=== PATIENT | male | born 1990 | race Caucasian/White ===

== ENCOUNTER 2018-07-03 15:15 | Emergency (ER) | payer BC ==
--- NOTE | 2018-07-03 17:42 | ER Document Report ---
ED Medical Screen (RME) - General Chief Complaint: Abdominal Pain Stated Complaint: ABDOMINAL PAIN Time Seen by Provider: 07/03/18 17:36 Mode of Arrival: Ambulatory Information source: Patient TRAVEL OUTSIDE OF THE [place] IN LAST 30 DAYS: No - HPI Patient complains to provider of: MIKEO PAIN Notes: 07/03/18 17:41 Patient here with multiple complaints. The patient states been having some intermittent numbness and to both hands and feet for the last few weeks with increased thirst. Her last few days been having some upper abdominal pain. He denies any chest pain or shortness of breath. No nausea, vomiting, diarrhea. No fever. No known chronic medical problems. Exam Nontoxic, no distress. Mild upper abdominal tenderness to palpation. Lungs clear and equal throughout. Heart rate normal. Plan CBC, CMP, lipase, Accu-Chek, urine, ultrasound of the right upper quadrant. An initial examination was made on the patient as part of the triage process, and it was determined a more comprehensive evaluation was necessary. Initial labs were ordered and patient was transferred to another provider in the ED who assumed care and finished evaluation and plan. - Related Data Allergies/Adverse Reactions: No Known Allergies Allergy (Verified 07/03/18 17:39) Past Medical History - Social History Chew tobacco use (# tins/day): No Frequency of alcohol use: None Drug Abuse: None Renal/ Medical History: Denies: Hx Peritoneal Dialysis Past Surgical History: Reports: Hx Appendectomy Physical Exam - Vital signs Vitals: Temp Pulse Resp BP Pulse Ox 98.2 F 90 18 176/108 H 97 07/03/18 15:23 07/03/18 15:23 07/03/18 15:23 07/03/18 15:23 07/03/18 15:23 Course - Vital Signs Vital signs: Temp Pulse Resp BP Pulse Ox 98.2 F 90 18 176/108 H 97 07/03/18 15:23 07/03/18 15:23 07/03/18 15:23 07/03/18 15:23 07/03/18 15:23
[2018-07-03 18:12] LABS: ABSOLUTE BASOPHILS # (AUTO) 0.1 10^3/uL (0.0-0.2); ABSOLUTE EOSINOPHILS # (AUTO) 0.5 10^3/uL (0.0-0.6); ABSOLUTE LYMPHOCYTES (AUTO) 3.7 10^3/uL (0.5-4.7); ABSOLUTE MONOCYTES (AUTO) 0.8 10^3/uL (0.1-1.4); ABSOLUTE NEUT (AUTO) 4.9 10^3/uL (1.7-8.2); BASOPHILS % (AUTO) 0.5 % (0-2); HEMATOCRIT 46.7 % (37.9-51.0); HEMOGLOBIN 16.2 g/dL (13.5-17.0); LYMPHOCYTES % (AUTO) 36.8 % (13-45); MEAN CORPUSCULAR HEMOGLOBIN 31.5 pg (27.0-33.4); MEAN CORPUSCULAR HGB CONC 34.7 g/dL (32.0-36.0); MEAN CORPUSCULAR VOLUME 91 fl (80-97); MONOCYTES % (AUTO) 8.3 % (3-13); PLATELET COUNT 244 10^3/uL (150-450); RED BLOOD COUNT 5.14 10^6/uL (4.35-5.55); RED CELL DISTRIBUTION WIDTH 13.1 % (11.5-14.0); SEGMENTED NEUTROPHILS % (AUTO) 49.4 % (42-78); TOTAL CELLS COUNTED % (AUTO) 100 %; WHITE BLOOD COUNT 9.9 10^3/uL (4.0-10.5)
[2018-07-03 18:20] LABS: APPEARANCE,URINE CLEAR; BILIRUBIN,URINE NEGATIVE (NEGATIVE); COLOR,URINE YELLOW; GLUCOSE, URINE NEGATIVE (NEGATIVE); KETONES,URINE NEGATIVE (NEGATIVE); LEUKOCYTE ESTERASE,URINE NEGATIVE (NEGATIVE); NITRITE,URINE NEGATIVE (NEGATIVE); PROTEIN,URINE NEGATIVE (NEGATIVE); UROBILINOGEN,URINE NEGATIVE mg/dL (<2.0)
[2018-07-03 18:34] LABS: ALANINE AMINOTRANSFERASE 62 U/L (21-72); ALBUMIN 4.2 g/dL (3.5-5.0); ALKALINE PHOSPHATASE 68 U/L (38-126); ANION GAP 8 (5-19); ASPARTATE AMINO TRANSFERASE 37 U/L (17-59); BILIRUBIN,DIRECT 0.4 mg/dL (0.0-0.4); BILIRUBIN,TOTAL 0.6 mg/dL (0.2-1.3); BLOOD UREA NITROGEN 14 mg/dL (7-20); CALCIUM 9.4 mg/dL (8.4-10.2); CARBON DIOXIDE 25 mmol/L (22-30); CHLORIDE 106 mmol/L (98-107); GLUCOSE 100 mg/dL (75-110); LIPASE 75.2 U/L (23-300); POTASSIUM 4.6 mmol/L (3.6-5.0); TOTAL PROTEIN 7.4 g/dL (6.3-8.2)
--- NOTE | 2018-07-03 18:40 | RADIOLOGY REPORT (SQ) ---
EXAM DESCRIPTION: U/S ABDOMEN LIMITED W/O DOP COMPLETED DATE/TIME: 07/03/2018 6:19 pm REASON FOR STUDY: UPPER ABDO PAIN COMPARISON: None. TECHNIQUE: Dynamic and static grayscale images acquired of the abdomen and recorded on PACS. Additio nal selected color Doppler and spectral images recorded. LIMITATIONS: None. FINDINGS: PANCREAS: No masses. No peripancreatic edema or fluid collections. LIVER: Echotexture is coarse with increased echogenicity consistent with fatty infiltration. LIVER VASCULATURE: Normal directional flow of the main portal vein and hepatic veins. GALLBLADDER: Contracted. No stones. Normal wall thickness. No pericholecystic fluid. ULTRASOUND-DETECTED MAYO'S SIGN: Negative. INTRAHEPATIC DUCTS AND COMMON DUCT: CBD and intrahepatic ducts normal caliber. No filling defects. INFERIOR VENA CAVA: Normal flow. AORTA: No aneurysm. RIGHT KIDNEY: Normal size. Normal echogenicity. No solid or suspicious masses. No hydronephros is. No calcifications. PERITONEAL AND RIGHT PLEURAL SPACE: No ascites or effusions. OTHER: No other significant finding. IMPRESSION: FATTY INFILTRATION OF THE LIVER. No acute gallbladder findings. . TECHNICAL DOCUMENTATION: JOB ID: [id number] [id number] 2010 [employer]- All Rights Reserved Reading location - IP/workstation name: [email or web address]
[2018-07-03] MEDS ORDERED: LIDOCAINE 2% VISCOUS SOLN 20 ML UDCUP PO ONE (19:12)
[2018-07-03] MEDS ORDERED: MAG HYDROX/AL HYDROX/SIMETH SUSP 30 ML UDCUP PO ONE (19:12)
[2018-07-03] MEDS ORDERED: METOCLOPRAMIDE HCL ORAL SOLN 10 MG/10 ML UDCUP PO ONE (19:12)
[2018-07-03] MEDS ORDERED: FAMOTIDINE 20 MG TABLET PO ONE (19:12)
--- NOTE | 2018-07-03 19:12 | ER Document Report ---
ED General - General Chief Complaint: Abdominal Pain Stated Complaint: ABDOMINAL PAIN Time Seen by Provider: 07/03/18 17:36 Mode of Arrival: Ambulatory Notes: Patient is a 27-year old male without chronic medical problems presenting with multiple complaints. The patient states been having some intermittent numbness and to both hands and feet for the last few weeks. Symptoms come and go. No obvious triggering factors, do resolve on their own. Has also had some intermittent blurred vision. Does not have any symptoms currently. Nothing seems to improve or worsen the symptoms. Regards symptoms being mild. Re latively unchanged since onset. 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 He denies bowel or bladder incontinence, urinary retention, focal weakness, loss of sensation, inability to ambulate or syncope. No chest pain or shortness of breath. He has not contacted his primary care physician regarding today's concerns. TRAVEL OUTSIDE OF THE [place] IN LAST 30 DAYS: No - Related Data Allergies/Adverse Reactions: No Known Allergies Allergy (Verified 07/03/18 17:39) Past Medical History - General Information source: Patient - Social History Smoking Status: Current Every Day Smoker Chew tobacco use (# tins/day): No Frequency of alcohol use: None Drug Abuse: None Family History: Reviewed & Not Pertinent Patient has suicidal ideation: No Patient has homicidal ideation: No Renal/ Medical History: Denies: Hx Peritoneal Dialysis Past Surgical History: Reports: Hx Appendectomy Review of Systems - Review of Systems Notes: Constitutional: Negative for fever. HENT: Negative for sore throat. Eyes: Positive for visual changes. Cardiovascular: Negative for chest pain. Respiratory: Negative for shortness of breath. Gastrointestinal: Positive for upper abdominal pain Genitourinary: Negative for dysuria. Musculoskeletal: Positive for mid and low back pain Skin: Negative for rash. Neurological: Negative for headaches, positive for paresthesias to the bilateral hands and feet 10 point ROS negative except as marked above and in HPI. Physical Exam - Vital signs Vitals: Temp Pulse Resp BP Pulse Ox 98.2 F 90 18 176/108 H 97 07/03/18 15:23 07/03/18 15:23 07/03/18 15:23 07/03/18 15:23 07/03/18 15:23 Interpretation: Hypertensive Notes: PHYSICAL EXAMINATION: GENERAL: Well-appearing, well-nourished and in no acute distress. HEAD: Atraumatic, normocephalic. EYES: Pupils equal round and reactive to light, extraocular movements intact, sclera anicteric, conjunctiva are normal. ENT: nares patent, oropharynx clear without exudates. Moist mucous membranes. NECK: Normal range of motion, supple without lymphadenopathy LUNGS: Breath sounds clear to auscultation bilaterally and equal. No wheezes rales or rhonchi. HEART: Regular rate and rhythm without murmurs ABDOMEN: Soft, nontender, normoactive bowel sounds. No guarding, no rebound. No masses appreciated. EXTREMITIES: Normal range of motion, no pitting or edema. No cyanosis. Back: No midline spinal tenderness step-offs or deformities NEUROLOGICAL: Face symmetric. Tongue protrudes midline. Extraocular motions intact. Pupils are 2 mm and equally reactive. Normal speech, normal gait. 5 out of 5 strength in both the distal and proximal upper and lower extremities bilaterally. 2+ patellar reflexes bilaterally sensation is grossly intact throughout. Finger to nose testing normal. Pronator drift normal. PSYCH: Normal mood, normal affect. SKIN: Warm, Dry, normal turgor, no rashes or lesions noted. Course - Re-evaluation Re-evalutation: 07/03/18 19:09 Patient presents with multiple vague complaints that did not appear to be concerning for any acute life-threatening pathology. Vitals are within normal limits at triage and at time of discharge. Physical examination is unremarkable. Patient has tolerated oral intake without difficulty. Patient was not noted to be in distress at any point during their ER visit. At this time, based on the reassuring evaluation, I do not suspect an acute ID, pulmonary embolus, aortic dissection, acute intra-abdominal pathology, stroke, or sepsis.I have emphasized to the patient that he needs to establish a primary care follow-up, we have reviewed an MRI of his head would be indicated as an outpatient if he persists with intermittent paresthesias in his hands, feet and blurred vision. I have advised smoking cessation and weight loss. Have started on famotidine for upper intestinal pain. Right upper quadrant ultrasound, broad panel of laboratories, all unremarkable. Will discharge with return precautions and follow-up recommendations. Verbal discharge instructions given a the bedside and opportunity for questions given. Medication warnings reviewed. Patient is in agreement with this plan and has verbalized understanding of return precautions and the need for primary care follow-up in the next 24-72 hours. - Vital Signs Vital signs: Temp Pulse Resp BP Pulse Ox 98.2 F 90 18 176/108 H 97 07/03/18 15:23 07/03/18 15:23 07/03/18 15:23 07/03/18 15:23 07/03/18 15:23 - Laboratory Result Diagrams: 07/03/18 17:45 07/03/18 17:45 Laboratory results interpreted by me: 07/03/18 17:42 Urine Blood SMALL H - Diagnostic Test Radiology reviewed: Reports reviewed Discharge - Discharge Clinical Impression: Mid back pain, Upper abdominal pain, Paresthesia of both hands, Paresthesia of both feet, Elevated blood pressure reading Condition: Stable Disposition: HOME, SELF-CARE Additional Instructions: Your blood work, urine studies, right upper quadrant ultrasound of your gallbladder are all normal today. Your blood pressure was noted to be elevated and I do encourage you to check your blood pressure as an outpatient to determine whether or not you truly have high blood pressure. I also strongly encourage you to stop smoking. As we discussed if you continue to have tingling in her hands and feet intermittently and blurring of vision you need to have an MRI of her head obtained as an outpatient. He can begin taking famotidine that has been prescribed as needed for upper intestinal irritation that could be causing upper abdominal pain. Your mid and low back pain is likely musculoskeletal in origin and you can use Tylenol 1000 mg every 6 hours as well as stretching and massage to the area to help with this discomfort. As we discussed today, please strongly consider losing weight. Your obesity will result in a shorter life and serious diagnoses including heart attacks, stroke, diabetes, high blood pressure, high cholesterol, kidney failure, and will also result in a much less enjoyable life due to these chronic conditions. Focus on gradual life style changes including removing sugared beverages and processed foods from your diet and at least 30 minutes of moderate activity daily. Try to target 4-5lbs of weight loss per month. Prescriptions: Famotidine 40 mg PO BID #60 tablet
[2018-07-03 19:50] VITALS: BP 179/109
== END 2018-07-03 19:50 | disposition home or self-care (01) ==
LOC: ER 15:15
DX: M54.6 Pain in thoracic spine (principal); R10.10 Upper abdominal pain, unspecified; R20.2 Paresthesia of skin; R03.0 Elevated blood-pressure reading, without diagnosis of hypertension; F17.200 Nicotine dependence, unspecified, uncomplicated
CPT/HCPCS: 99284; 36415; 82962; 83690; 83735; 84443; 85025; 80053; 81001; 76705; J3490

== ENCOUNTER 2019-04-28 22:38 | Emergency (ER) | payer BC ==
[2019-04-29] MEDS ORDERED: ONDANSETRON 4 MG TAB.RAPDIS PO ONE ×2 (00:28→05:38)
[2019-04-29] MEDS ORDERED: ASPIRIN 325 MG TABLET PO ONE (00:28)
--- NOTE | 2019-04-29 00:29 | ER Document Report ---
ED Medical Screen (RME) - General Chief Complaint: Chest Pain Stated Complaint: CHEST PAIN,BLURRED VISION Notes: Patient is a 28-year-old male with no significant past medical history who presents to the emergency department the chief complaint of vomiting and diarrhea for the past few days. He states recently it has been associated with dizziness, chest pain, upper abdominal pain and shortness of breath. He admits to family history of high blood pressure but no other cardiac disease. He denies any known history of high blood pressure for himself. Denies any recent travel or known sick contacts. I have treated and performed a rapid initial assessment of this patient. A comprehensive ED assessment and evaluation of the patient, analysis of test results and completion of medical decision making process will be conducted by additional ED providers. PHYSICAL EXAMINATION: GENERAL: Well-appearing, well-nourished and in no acute distress. A&Ox4. Answers questions appropriately. TRAVEL OUTSIDE OF THE [place] IN LAST 30 DAYS: No - Related Data Allergies/Adverse Reactions: No Known Allergies Allergy (Verified 07/03/18 17:39) Past Medical History Renal/ Medical History: Denies: Hx Peritoneal Dialysis Past Surgical History: Reports: Hx Appendectomy Physical Exam - Vital signs Vitals: Temp Pulse Resp BP Pulse Ox 99.1 F 96 18 153/108 H 95 04/28/19 22:55 04/28/19 22:55 04/28/19 22:55 04/28/19 22:55 04/28/19 22:55 Course - Vital Signs Vital signs: Temp Pulse Resp BP Pulse Ox 99.1 F 96 18 153/108 H 95 04/28/19 22:55 04/28/19 22:55 04/28/19 22:55 04/28/19 22:55 04/28/19 22:55
[2019-04-29 01:00] LABS: ABSOLUTE BASOPHILS # (AUTO) 0.1 10^3/uL (0.0-0.2); ABSOLUTE EOSINOPHILS # (AUTO) 0.1 10^3/uL (0.0-0.6); ABSOLUTE LYMPHOCYTES (AUTO) 1.9 10^3/uL (0.5-4.7); ABSOLUTE MONOCYTES (AUTO) 0.6 10^3/uL (0.1-1.4); ABSOLUTE NEUT (AUTO) 6.9 10^3/uL (1.7-8.2); BASOPHILS % (AUTO) 0.5 % (0-2); EOSINOPHILS % (AUTO) 1.1 % (0-6); HEMATOCRIT 46.4 % (37.9-51.0); HEMOGLOBIN 16.2 g/dL (13.5-17.0); LYMPHOCYTES % (AUTO) 20.3 % (13-45); MEAN CORPUSCULAR HEMOGLOBIN 31.1 pg (27.0-33.4); MEAN CORPUSCULAR HGB CONC 34.8 g/dL (32.0-36.0); MEAN CORPUSCULAR VOLUME 89 fl (80-97); MONOCYTES % (AUTO) 6.1 % (3-13); PLATELET COUNT 226 10^3/uL (150-450); RED CELL DISTRIBUTION WIDTH 13.3 % (11.5-14.0); TOTAL CELLS COUNTED % (AUTO) 100 %; WHITE BLOOD COUNT 9.6 10^3/uL (4.0-10.5)
[2019-04-29 01:24] LABS: A TYPE INFLUENZA AG NEGATIVE (NEGATIVE); B INFLUENZA AG NEGATIVE (NEGATIVE)
[2019-04-29 01:25] LABS: ALBUMIN 3.9 g/dL (3.5-5.0); ALKALINE PHOSPHATASE 67 U/L (38-126); ANION GAP 9 (5-19); ASPARTATE AMINO TRANSFERASE 27 U/L (17-59); BILIRUBIN,TOTAL 0.9 mg/dL (0.2-1.3); BLOOD UREA NITROGEN 12 mg/dL (7-20); CALCIUM 8.7 mg/dL (8.4-10.2); CARBON DIOXIDE 24 mmol/L (22-30); CHLORIDE 102 mmol/L (98-107); GLUCOSE 92 mg/dL (75-110); POTASSIUM 3.6 mmol/L (3.6-5.0); TOTAL PROTEIN 6.5 g/dL (6.3-8.2)
[2019-04-29] MEDS ORDERED: ONDANSETRON 4 MG TAB.RAPDIS ONE (04:59)
[2019-04-29] MEDS ORDERED: ASPIRIN 325 MG TABLET ONE (04:59)
--- NOTE | 2019-04-29 05:09 | RADIOLOGY REPORT (SQ) ---
EXAM DESCRIPTION: XR CHEST 2 VIEWS COMPLETED DATE/TME: 04/29/2019 00:28 CLINICAL HISTORY: cp, sob COMPARISON: None. FINDINGS: Frontal and lateral views of the chest. Cardiomediastinal silhouette: Normal size and contour. Lungs: No consolidation, pneumothorax, or pleural effusion. Bones: No acute osseous abnormality. Low lung volumes. Upper abdomen: No abnormality identified. IMPRESSION: 1. No acute pulmonary process identified.
[2019-04-29] MEDS ORDERED: LOPERAMIDE HCL 2 MG CAPSULE PO ONE (05:38)
--- NOTE | 2019-04-29 06:18 | ER Document Report ---
ED General - General Chief Complaint: Chest Pain Stated Complaint: CHEST PAIN,BLURRED VISION Notes: 28 year old male presents to the ED complaining of diarrhea starting Sunday progressing to nausea, vomiting and diarrhea on Sunday that is non-bloody. States that since Sunday he has not been able to tolerate any oral intake. States that Sunday evening he developed some chest pain and shortness of breath which is only there on standing or walking and it is also associated with dizziness. Neither of the symptoms are very well resting. Patient states the chest pain is bilateral in his low chest and sharp and stabbing in nature. TRAVEL OUTSIDE OF THE [place] IN LAST 30 DAYS: No - Related Data Allergies/Adverse Reactions: No Known Allergies Allergy (Verified 07/03/18 17:39) Past Medical History - General Information source: Patient - Social History Smoking Status: Current Every Day Smoker Chew tobacco use (# tins/day): Yes Frequency of alcohol use: None Drug Abuse: None Family History: Reviewed & Not Pertinent Patient has suicidal ideation: No Patient has homicidal ideation: No Renal/ Medical History: Denies: Hx Peritoneal Dialysis Past Surgical History: Reports: Hx Appendectomy Review of Systems - Review of Systems Constitutional: Chills, Diaphoresis, Weakness. denies: Fever EENT: No symptoms reported Cardiovascular: See HPI Respiratory: See HPI Gastrointestinal: See HPI -: Yes All other systems reviewed and negative Physical Exam - Vital signs Vitals: Temp Pulse Resp BP Pulse Ox 99.1 F 96 18 153/108 H 95 04/28/19 22:55 04/28/19 22:55 04/28/19 22:55 04/28/19 22:55 04/28/19 22:55 Interpretation: Hypertensive - Notes Notes: GENERAL: Alert, interacts well. No acute distress. HEAD: Normocephalic, atraumatic EYES: Pupils equal, round and reactive to light, extraocular movements intact. ENT: Oral mucosa moist, tongue midline. NECK: Full range of motion, supple, trachea midline. LUNGS: Clear to auscultation bilaterally, no wheezes, rales or rhonchi, no respiratory distress. HEART: Regular rate and rhythm, no murmurs, gallops, rubs. ABDOMEN: Soft, nontender, nondistended, bowel sounds present in all 4 quadrants. EXTREMITIES: Moves all 4 extremities spontaneously, no edema, radial and dorsalis pedis pulses 2/4 bilaterally. No cyanosis. NEUROLOGICAL: Alert and oriented x3, normal speech. PSYCH: Normal mood, normal affect. SKIN: Warm, Dry, normal turgor, no rashes or lesions noted. Course - Re-evaluation Re-evalutation: 04/29/19 06:16 CBC unremarkable, CMP grossly unremarkable, troponin negative, flu swab negative, chest x-ray shows no acute process, EKG is nonischemic. No further vomiting since arrival. Patient will be given more Zofran and a p.o. challenge, so long as he tolerates oral without difficulty, patient will be discharged home. - Vital Signs Vital signs: Temp Pulse Resp BP Pulse Ox 97.7 F 90 20 152/109 H 97 04/29/19 03:20 04/29/19 03:20 04/29/19 03:20 04/29/19 03:20 04/29/19 03:20 - Laboratory Result Diagrams: 04/29/19 00:35 04/29/19 00:35 Laboratory results interpreted by me: 04/29/19 00:35 Sodium 135.2 L - EKG Interpretation by Me Additional EKG results interpreted by me: 04/29/19 06:16 EKG shows sinus rhythm at a rate of 95, slight left axis deviation, normal intervals, no ST segment elevations or depressions, no T wave inversions per my interpretation. Discharge - Discharge Clinical Impression: Nausea vomiting and diarrhea, Chest pain with low risk for cardiac etiology Condition: Stable Disposition: HOME, SELF-CARE Additional Instructions: Vomiting Vomiting (or nausea without vomiting) can be caused by many other different problems. In most cases, curing the vomiting depends on fixing the problem that caused it. For temporary relief, we may use an anti-nausea medicine. For home use, we can prescribe suppositories, chewable pills, pills that dissolve in the mouth, or liquid anti-nausea drugs. If the vomiting seems to be caused by a pr oblem in the stomach, acid-suppressing drugs may be prescribed as well. Please take Pepcid 20 mg twice a day for the next week. This will help to decrease overproduction of acid in your stomach. It's important to avoid dehydration. Sip small amounts of clear liquids (soft drinks, tea, broth, etc) . Try to take fluids frequently even if you are vomiting to prevent dehydration. Take increasing amounts of fluid and when liquids are being consumed successfully, advance to small amounts of bland food (toast, soups, mashed potatoes, etc.) until you are able to resume a regular diet. Avoid aspirin, tobacco, and alcohol. If the vomiting worsens, if the problem that's making you vomit worsens, or if there's evidence of bleeding in the stomach (such as black, tarry stool, or bloody or black vomit), you should return immediately. Also, return if abdominal pain worsens or becomes localized to one area or you develop high fever. Call your doctor if you aren't improved in 24 hours. For your diarrhea you may use Imodium as directed [id number]. Prescriptions: Ondansetron [Zofran Odt 4 mg Tablet] 1 - 2 tab PO Q4H PRN #15 tab.rapdis PRN Reason: For Nausea/Vomiting
[2019-04-29 06:55] VITALS: BP 140/96
--- NOTE | 2019-04-29 11:32 | EKG REPORT ---
SEVERITY:- NORMAL ECG - SINUS RHYTHM : Confirmed by: Ursula Watt 29-Apr-2019 11:31:42
== END 2019-04-29 06:55 | disposition home or self-care (01) ==
LOC: ER 22:38
DX: R07.9 Chest pain, unspecified (principal); R11.2 Nausea with vomiting, unspecified; R19.7 Diarrhea, unspecified; H53.8 Other visual disturbances; R06.02 Shortness of breath; F17.290 Nicotine dependence, other tobacco product, uncomplicated
CPT/HCPCS: 93005; 36415; 85025; 80053; 84484; 87804; 71046; 93010; S0119; 99285

== ENCOUNTER 2019-08-21 21:06 | Emergency (ER) | payer BC ==
[2019-08-21 21:18] VITALS: BP 175/115
--- NOTE | 2019-08-21 21:31 | ER Document Report ---
HPI - HPI Patient complains to provider of: Anal pain Time Seen by Provider: 08/21/19 21:26 Quality of pain: No pain Associated Symptoms: None Exacerbated by: Denies Similar symptoms previously: Yes Recently seen / treated by doctor: No Notes: This [age]-year-old male scented to the emergency room today stating he had anal discomfort which is been ongoing since about Sunday there is an inflamed area lateral to his anus and it started bleeding. Past Medical History - General Information source: Patient - Social History Smoking Status: Never Smoker Cigarette use (# per day): No Chew tobacco use (# tins/day): No Smoking Education Provided: No Frequency of alcohol use: None Drug Abuse: None Family History: Reviewed & Not Pertinent Renal/ Medical History: Denies: Hx Peritoneal Dialysis Past Surgical History: Reports: Hx Appendectomy Vertical Provider Document - CONSTITUTIONAL Agree With Documented VS: Yes - INFECTION CONTROL TRAVEL OUTSIDE OF THE [place] IN LAST 30 DAYS: No - HEENT HEENT: Atraumatic, Conjuctival Injection, Normocephalic, PERRLA - NECK Neck: Normal Inspection - RESPIRATORY Respiratory: Breath Sounds Normal - CARDIOVASCULAR Cardiovascular: Regular Rate, Regular Rhythm - GI/ABDOMEN Gastrointestinal: Abdomen Soft, Abdomen Non-Tender, Abdominal Guarding - REPRODUCTIVE Male Genitalia: Normal Inspection Notes: Patient does have a 3 cm hemorrhoid to the left lateral aspect of his anus. - BACK Back: Normal Inspection - MUSCULOSKELETAL/EXTREMETIES Musculoskeletal/Extremeties: MAEW - NEURO Level of Consciousness: Awake, Alert Motor/Sensory: No Motor Deficit, No Sensory Deficit - DERM Integumentary: Warm Course - Vital Signs Vital signs: Temp Pulse Resp BP Pulse Ox 98.3 F 94 20 175/115 H 96 08/21/19 21:12 08/21/19 21:12 08/21/19 21:12 08/21/19 21:12 08/21/19 21:12 Discharge - Discharge Clinical Impression: Hemorrhoid Qualifiers: Hemorrhoid type: first degree Qualified Code(s): K64.0 - First degree hemorrhoids Disposition: HOME, SELF-CARE Instructions: Hemorrhoids ([facility]) Prescriptions: Acetaminophen with Codeine [Tylenol #3 Tablet] 1 each PO Q4HP PRN #30 tablet PRN Reason: Hydrocortisone Acetate [Anusol-Hc] 25 mg RC Q6 #20 supp.rect
== END 2019-08-21 21:33 | disposition home or self-care (01) ==
LOC: ER 21:06
DX: K64.0 First degree hemorrhoids (principal)
CPT/HCPCS: 99283

== ENCOUNTER 2019-10-04 07:00 | Emergency (ER) | payer BC ==
[2019-10-04 08:28] LABS: ABSOLUTE EOSINOPHILS # (AUTO) 0.3 10^3/uL (0.0-0.6); ABSOLUTE LYMPHOCYTES (AUTO) 2.9 10^3/uL (0.5-4.7); ABSOLUTE MONOCYTES (AUTO) 0.6 10^3/uL (0.1-1.4); ABSOLUTE NEUT (AUTO) 6.2 10^3/uL (1.7-8.2); BASOPHILS % (AUTO) 0.5 % (0-2); EOSINOPHILS % (AUTO) 2.8 % (0-6); HEMATOCRIT 42.8 % (37.9-51.0); LYMPHOCYTES % (AUTO) 28.7 % (13-45); MEAN CORPUSCULAR HEMOGLOBIN 31.5 pg (27.0-33.4); MEAN CORPUSCULAR HGB CONC 35.1 g/dL (32.0-36.0); MEAN CORPUSCULAR VOLUME 90 fl (80-97); MONOCYTES % (AUTO) 5.7 % (3-13); PLATELET COUNT 223 10^3/uL (150-450); RED BLOOD COUNT 4.77 10^6/uL (4.35-5.55); RED CELL DISTRIBUTION WIDTH 13.3 % (11.5-14.0); SEGMENTED NEUTROPHILS % (AUTO) 62.3 % (42-78); TOTAL CELLS COUNTED % (AUTO) 100 %
[2019-10-04] MEDS ORDERED: METOCLOPRAMIDE HCL ORAL SOLN 10 MG/10 ML UDCUP PO ONE (08:30)
[2019-10-04] MEDS ORDERED: LIDOCAINE 2% VISCOUS SOLN 15 ML UDCUP PO ONE (08:30)
[2019-10-04] MEDS ORDERED: MAG HYDROX/AL HYDROX/SIMETH SUSP 30 ML UDCUP PO ONE (08:30)
[2019-10-04] MEDS ORDERED: ASPIRIN 81 MG TABLET, CHEWABLE PO ONE (08:31)
[2019-10-04 08:42] LABS: ALBUMIN 4.3 g/dL (3.5-5.0); ALKALINE PHOSPHATASE 76 U/L (38-126); ANION GAP 7 (5-19); ASPARTATE AMINO TRANSFERASE 36 U/L (17-59); BILIRUBIN,TOTAL 0.4 mg/dL (0.2-1.3); BLOOD UREA NITROGEN 17 mg/dL (7-20); CALCIUM 9.4 mg/dL (8.4-10.2); CARBON DIOXIDE 23 mmol/L (22-30); CHLORIDE 109 mmol/L (98-107); CREATINE KINASE 79 U/L (55-170); GLUCOSE 96 mg/dL (75-110); POTASSIUM 4.2 mmol/L (3.6-5.0); TOTAL PROTEIN 7.3 g/dL (6.3-8.2)
[2019-10-04 08:52] LABS: CREATINE KINASE MB 0.89 ng/mL (<4.55)
--- NOTE | 2019-10-04 08:56 | RADIOLOGY REPORT (SQ) ---
EXAM DESCRIPTION: CHEST SINGLE VIEW IMAGES COMPLETED DATE/TIME: 10/04/2019 8:41 am REASON FOR STUDY: chest pain COMPARISON: 04/29/2019 NUMBER OF VIEWS: One view. TECHNIQUE: Single frontal radiographic view of the chest acquired. LIMITATIONS: None. FINDINGS: LUNGS AND PLEURA: Low lung volumes. No opacities, masses or pneumothorax. No pleural eff usion. MEDIASTINUM AND HILAR STRUCTURES: No masses. No contour abnormality. HEART AND VASCULAR STRUCTURES: Normal size. No evidence for failure. BONES: No acute findings. HARDWARE: None in the chest. OTHER: No other significant finding. IMPRESSION: LOW LUNG VOLUMES. NO SIGNIFICANT RADIOGRAPHIC FINDING IN THE CHEST. TECHNICAL DOCUMENTATION: JOB ID: [id number] 2010 [employer]- All Rights Reserved Reading location - IP/workstation name: [email or web address]
[2019-10-04 09:04] LABS: TROPONIN I < 0.012 ng/mL
--- NOTE | 2019-10-04 10:21 | EKG REPORT ---
SEVERITY:- NORMAL ECG - SINUS RHYTHM : Confirmed by: Ursula Watt 04-Oct-2019 10:20:08
[2019-10-04] MEDS ORDERED: DEXAMETHASONE SOD PHOS INJ 10 MG/1 ML VIAL IM ONE (11:10)
[2019-10-04] MEDS ORDERED: KETOROLAC TROMETHAMINE 60 MG/2 ML SDV IM ONE (11:10)
[2019-10-04 13:20] LABS: APPEARANCE,URINE CLEAR; BILIRUBIN,URINE NEGATIVE (NEGATIVE); COLOR,URINE YELLOW; GLUCOSE, URINE NEGATIVE (NEGATIVE); KETONES,URINE NEGATIVE (NEGATIVE); LEUKOCYTE ESTERASE,URINE NEGATIVE (NEGATIVE); NITRITE,URINE NEGATIVE (NEGATIVE); PROTEIN,URINE 30 mg/dL (NEGATIVE); URINE SPECIFIC GRAVITY 1.025; UROBILINOGEN,URINE NEGATIVE mg/dL (<2.0)
[2019-10-04 13:24] LABS: URINE AMPHETAMINES SCREEN NEGATIVE; URINE BARBITURATES SCREEN NEGATIVE; URINE BENZODIAZEPINES SCREEN NEGATIVE; URINE COCAINE SCREEN NEGATIVE; URINE MARIJUANA (THC) SCREEN NEGATIVE; URINE METHADONE SCREEN NEGATIVE; URINE PHENCYCLIDINE SCREEN NEGATIVE
--- NOTE | 2019-10-04 14:19 | ER Document Report ---
Entered by ASHER PRADO SCRIBE 10/04/19 0836 Acting as scribe for:MEHNAZ GALINDO MD ED General - General Chief Complaint: Chest Pain Stated Complaint: CHEST PAIN Information source: Patient Notes: This 29 year old male patient presents to the emergency department today with complaints of chest pain. 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 Patient states it is a stabbing pain in the center of his chest that does not radiate. Patient states there is pain when taking deep breaths and reports some pain in his feet bilaterally. Patient states he has not been pushing/carrying heavy things lately and denies nausea or diaphoresis. TRAVEL OUTSIDE OF THE [place] IN LAST 30 DAYS: No - Related Data Allergies/Adverse Reactions: No Known Allergies Allergy (Verified 08/21/19 21:22) Past Medical History - General Information source: Patient - Social History Smoking Status: Current Every Day Smoker Cigarette use (# per day): Yes Frequency of alcohol use: None Drug Abuse: None Family History: Reviewed & Not Pertinent - Past Medical History Cardiac Medical History: Reports: Hx Hypertension Past Surgical History: Reports: Hx Appendectomy Review of Systems - Review of Systems Constitutional: See HPI. denies: Diaphoresis EENT: No symptoms reported Cardiovascular: See HPI, Chest pain Respiratory: See HPI, Hurts to breathe Gastrointestinal: See HPI. denies: Nausea Genitourinary: No symptoms reported Male Genitourinary: No symptoms reported Musculoskeletal: See HPI Skin: No symptoms reported Hematologic/Lymphatic: No symptoms reported Neurological/Psychological: No symptoms reported -: Yes All other systems reviewed and negative Physical Exam - Vital signs Vitals: Temp Pulse Resp BP Pulse Ox 98.2 F 91 20 169/106 H 98 10/04/19 07:13 10/04/19 07:13 10/04/19 07:13 10/04/19 07:13 10/04/19 07:13 - General General appearance: Appears well, Alert - HEENT Head: Normocephalic, Atraumatic Eyes: Normal Pupils: PERRL - Respiratory Respiratory status: No respiratory distress Breath sounds: Normal Notes: Tenderness with palpation to the midline anterior chest wall. - Cardiovascular Rhythm: Regular Heart sounds: Normal auscultation Murmur: No - Abdominal Inspection: Obese Distension: No distension Bowel sounds: Normal Tenderness: Nontender - Extremities General upper extremity: Normal inspection. No: Edema General lower extremity: Normal inspection, Nontender. No: Edema - Neurological Neuro grossly intact: Yes Cognition: Normal Orientation: AAOx4 - Psychological Associated symptoms: Normal affect, Normal mood - Skin Skin Temperature: Warm Skin Moisture: Dry Skin Color: Normal Course - Re-evaluation Re-evalutation: 10/04/19 14:00 Patient resting comfortably not showing any signs of distress at this time. - Vital Signs Vital signs: Temp Pulse Resp BP Pulse Ox 98.2 F 91 17 167/104 H 99 10/04/19 07:13 10/04/19 07:13 10/04/19 09:01 10/04/19 09:01 10/04/19 09:01 10/04/19 14:00 Vital signs show systolic and diastolic hypertension. Otherwise within normal limits. We will repeat vital signs to determine if patient's blood pressure still elevated. - Laboratory Result Diagrams: 10/04/19 08:08 10/04/19 08:08 Laboratory results interpreted by me: 10/04/19 10/04/19 08:08 12:45 Chloride 109 H ALT 59 H Urine Protein 30 H Urine Blood MODERATE H Laboratory shows moderate blood in urine but on microscopic there is no red cells present. - Diagnostic Test Radiology reviewed: Image reviewed, Reports reviewed Radiology results interpreted by me: 10/04/19 14:02 Chest x-ray shows no acute process. - EKG Interpretation by Me Additional EKG results interpreted by me: 10/04/19 14:02 Normal sinus rhythm rate of 91 no acute changes. Discharge - Discharge Clinical Impression: Acute chest wall pain, Hypertension Condition: Stable Disposition: HOME, SELF-CARE Instructions: Chest Wall Pain ([facility]), High Blood Pressure ([facility]) Prescriptions: Lisinopril/Hydrochlorothiazide [Lisinopril-Hctz 20-25 mg Tab] 1 each PO DAILY 30 Days #30 tablet Ibuprofen [Motrin 800 mg Tablet] 800 mg PO Q8H PRN #21 tablet PRN Reason: pain Forms: Elevated Blood Pressure I personally performed the services described in the documentation, reviewed and edited the documentation which was dictated to the scribe in my presence, and it accurately records my words and actions.
[2019-10-04 14:52] VITALS: BP 153/109
== END 2019-10-04 14:45 | disposition home or self-care (01) ==
LOC: ER 07:00
DX: R07.89 Other chest pain (principal); I10 Essential (primary) hypertension; F17.210 Nicotine dependence, cigarettes, uncomplicated
CPT/HCPCS: 93005; 99284; 96372; 36415; 82553; 82550; 85025; 80053; 81001; 84484; 80307; 71045; 93010; J1885; J3490; J1100

== ENCOUNTER 2019-12-07 14:54 | Emergency (ER) | payer BC ==
[2019-12-07] MEDS ORDERED: ALBUTEROL SULFATE 0.083% NEB 2.5 MG/3 ML AMPUL NEB ONE (15:47)
[2019-12-07] MEDS ORDERED: OXYCODONE-ACETAMINOPHEN 5-325 MG TABLET PO ONE (15:47)
--- NOTE | 2019-12-07 15:54 | ER Document Report ---
ED General - General Chief Complaint: Chest Tightness Stated Complaint: CHEST TIGHTNESS Time Seen by Provider: 12/07/19 15:33 Mode of Arrival: Ambulatory Information source: Patient Notes: Patient is a 29-year-old male coming in today with chief complaint chest pain shortness of breath. He woke up this morning and went out to have his first morning cigarette. While he was smoking he developed sharp sudden chest pain in the left side radiating to the right. Also very short of breath at rest. Denies drug use. Has a history of hypertension, obesity, and 1 pack/day smoking history. Does not report any family history. No history of diabetes. TRAVEL OUTSIDE OF THE [place] IN LAST 30 DAYS: No - Related Data Allergies/Adverse Reactions: No Known Allergies Allergy (Verified 12/07/19 15:52) Past Medical History - General Information source: Patient - Social History Smoking Status: Current Every Day Smoker Family History: Reviewed & Not Pertinent - Past Medical History Cardiac Medical History: Reports: Hx Hypertension Renal/ Medical History: Denies: Hx Peritoneal Dialysis Past Surgical History: Reports: Hx Appendectomy Review of Systems - Review of Systems Notes: Constitutional: No fevers. No chills. EENT: No eye redness. No eye pain. No ear pain. No sore throat. Cardiovascular: +chest pain. No palpitations. Respiratory: No cough. +shortness of breath. No respiratory distress. Gastrointestinal: No abdominal pain. No nausea, vomiting, or diarrhea. Genitourinary: Atraumatic. No lesions. No pain. No discharge. Musculoskeletal: Atraumatic. No swelling. No deformities. Skin: No rash or lesions. Lymphatic: No swollen lymph nodes. Neurologic: No headache. No syncope. Psychiatric: No suicidal or homicidal ideation. Physical Exam - Vital signs Vitals: Pulse Resp BP Pulse Ox 88 20 169/116 H 96 12/07/19 15:08 12/07/19 15:08 12/07/19 15:08 12/07/19 15:08 - Notes Notes: General: Well-developed, well-nourished. In no acute distress. Non-toxic appearing. Cardiac: Well-perfused. Regular rate and rhythm. No murmurs, rubs, or gallops. Pulmonary: Mild dyspnea. No cyanosis. Bilateral lung oliveira are clear to auscultation. Abdominal: Non-distended. Non-rigid. Bowels sounds are present in all four quadrants. No guarding or rebound. HEENT: Head is atraumatic. Conjunctivae not reddened. No tearing. PERRL. EOMI. Orbits atraumatic. No periorbital swelling or erythema. Oropharynx is without erythema, swelling, or exudates. Neck: Supple. No adenopathy. No meningismus. Dermatologic: Warm with good turgor. No rash. Atraumatic. Chest: Atraumatic. No chest wall tenderness to palpation. Musculoskeletal: Moves all extremities well. No range of motion deficits. no muscular or joint tenderness. No paraspinal muscle tenderness. no midline spinal tenderness or step-off. Genitourinary: Examination deferred Neurologic: No gross neurologic deficits. Psychiatric: Normal mood. Course - Re-evaluation Re-evalutation: 12/07/19 15:52 Patient has a heart score of 3. He is dyspneic on exam. His heart rate is normal but his saturations are 94% on room air. He has a smoking history. Denies drugs. Will give some albuterol and also something for pain to see if his symptoms subside. If they do not have low threshold to do a CT PE study to rule out PE. Differential includes pneumothorax, pneumonia, atypical chest pain, pulmonary embolism. 12/07/19 17:37 Patient states that the pain in his chest has somewhat improved but he does continue to have some dyspnea and his oxygen saturation on room air is between 92 and 94%. 12/07/19 19:28 Chest pain is gone. Shortness of breath is improved. O2 sat 96% on room air. Atelectasis seen on CT. Patient is still a rule out for coronavirus and t herefore I advised him to quarantine until such a time as he knows for sure. We will go ahead and treat him like an early pneumonia here. Send him home with Zithromax and a metered-dose albuterol inhaler with spacer. We will give him a [place] [facility] Dr. Ornelas for follow-up - Vital Signs Vital signs: Temp Pulse Resp BP Pulse Ox 88 26 H 146/97 H 88 L 12/07/19 15:08 12/07/19 16:53 12/07/19 16:53 12/07/19 16:53 - Laboratory Result Diagrams: 12/07/19 15:32 12/07/19 15:32 Laboratory results interpreted by me: 12/07/19 15:32 Chloride 108 H ALT 57 H Discharge - Discharge Clinical Impression: Atelectasis Upper respiratory infection Qualifiers: URI type: unspecified URI Qualified Code(s): J06.9 - Acute upper respiratory infection, unspecified Condition: Good Disposition: HOME, SELF-CARE Instructions: Upper Respiratory Illness ([facility]) Additional Instructions: Please avoid going out in public until you are advised of your coronavirus screening test results. Take 2 puffs of the inhaler every 4 hours as needed for shortness of breath/cough. Take Zithromax as directed starting tomorrow Prescriptions: Albuterol Sulfate [Proair HFA Inhalation Aerosol 8.5 gm MDI] 2 puff IH Q4H PRN #1 mdi PRN Reason: Azithromycin [Zithromax 250 mg Tablet] 250 mg PO ASDIR PRN #6 tablet PRN Reason: Forms: Return to Work
[2019-12-07 16:07] LABS: ABSOLUTE EOSINOPHILS # (AUTO) 0.3 10^3/uL (0.0-0.6); ABSOLUTE LYMPHOCYTES (AUTO) 3.2 10^3/uL (0.5-4.7); ABSOLUTE MONOCYTES (AUTO) 0.7 10^3/uL (0.1-1.4); ABSOLUTE NEUT (AUTO) 5.4 10^3/uL (1.7-8.2); BASOPHILS % (AUTO) 0.2 % (0-2); EOSINOPHILS % (AUTO) 3.5 % (0-6); HEMATOCRIT 41.8 % (37.9-51.0); HEMOGLOBIN 14.9 g/dL (13.5-17.0); LYMPHOCYTES % (AUTO) 32.7 % (13-45); MEAN CORPUSCULAR HEMOGLOBIN 31.8 pg (27.0-33.4); MEAN CORPUSCULAR HGB CONC 35.5 g/dL (32.0-36.0); MEAN CORPUSCULAR VOLUME 90 fl (80-97); MONOCYTES % (AUTO) 7.3 % (3-13); PLATELET COUNT 229 10^3/uL (150-450); RED BLOOD COUNT 4.67 10^6/uL (4.35-5.55); RED CELL DISTRIBUTION WIDTH 13.2 % (11.5-14.0); SEGMENTED NEUTROPHILS % (AUTO) 56.3 % (42-78); TOTAL CELLS COUNTED % (AUTO) 100 %; WHITE BLOOD COUNT 9.7 10^3/uL (4.0-10.5)
--- NOTE | 2019-12-07 16:14 | RADIOLOGY REPORT (SQ) ---
EXAM DESCRIPTION: CHEST SINGLE VIEW IMAGES COMPLETED DATE/TIME: 12/07/2019 3:57 pm REASON FOR STUDY: chest pain COMPARISON: 10/04/2019 TECHNIQUE: Single frontal radiographic view of the chest acquired. NUMBER OF VIEWS: One view. LIMITATIONS: None. FINDINGS: LUNGS AND PLEURA: No pneumothorax. Mild subsegmental atelectasis in the left medial lung base. No pleural effusion. MEDIASTINUM AND HILAR STRUCTURES: Stable. HEART AND VASCULAR STRUCTURES: Stable. BONES: No acute findings. HARDWARE: None in the chest. OTHER: No other significant finding. IMPRESSION: Mild subsegmental atelectasis in the left medial lung base. No pleural effusion. TECHNICAL DOCUMENTATION: JOB ID: [id number] 2010 [email or web address]- All Rights Reserved Reading location - IP/workstation name: [email or web address]
[2019-12-07 16:17] LABS: ALBUMIN 3.9 g/dL (3.5-5.0); ALKALINE PHOSPHATASE 85 U/L (38-126); ANION GAP 6 (5-19); ASPARTATE AMINO TRANSFERASE 34 U/L (17-59); BILIRUBIN,DIRECT 0.3 mg/dL (0.0-0.4); BILIRUBIN,TOTAL 0.5 mg/dL (0.2-1.3); BLOOD UREA NITROGEN 15 mg/dL (7-20); CALCIUM 8.8 mg/dL (8.4-10.2); CARBON DIOXIDE 24 mmol/L (22-30); CHLORIDE 108 mmol/L (98-107); CREATINE KINASE 65 U/L (55-170); GLUCOSE 98 mg/dL (75-110); POTASSIUM 3.9 mmol/L (3.6-5.0); TOTAL PROTEIN 6.6 g/dL (6.3-8.2)
[2019-12-07 16:24] LABS: CREATINE KINASE MB 0.59 ng/mL (<4.55); TROPONIN I < 0.012 ng/mL
[2019-12-07 17:16] LABS: URINE AMPHETAMINES SCREEN NEGATIVE; URINE BARBITURATES SCREEN NEGATIVE; URINE BENZODIAZEPINES SCREEN NEGATIVE; URINE COCAINE SCREEN NEGATIVE; URINE METHADONE SCREEN NEGATIVE; URINE PHENCYCLIDINE SCREEN NEGATIVE
[2019-12-07 17:19] LABS: URINE MARIJUANA (THC) SCREEN UNCONFIRMED POSITIVE
--- NOTE | 2019-12-07 19:00 | RADIOLOGY REPORT (SQ) ---
EXAM DESCRIPTION: CTA CHEST IMAGES COMPLETED DATE/TIME: 12/07/2019 6:45 pm REASON FOR STUDY: dyspnea, hypoxia, PE protocol COMPARISON: None. TECHNIQUE: CT scan of the chest performed using helical scanning technique with dynamic intravenous contrast injection. Images reviewed with lung, soft tissue and bone windows. Reconstructed coronal and sagittal MPR images reviewed. Additional 3 dimensional post-processing performed to develop Maximal Intensity Projection images (SD P). All images stored on PACS. All CT scanners at this facility use dose modulation, iterative reconstruction, and/or weight based d osing when appropriate to reduce radiation dose to as low as reasonably achievable (ALARA). [facility]: Dose Right [facility]: CareDose [facility]: Dose Right [facility]: Teradose 4D [facility]: [employer] Global CONTRAST TYPE AND DOSE: contrast/concentration: Isovue 350.00 mmol/ml; Total Contrast Delivered: 75. 0 ml; Total Saline Delivered: 80.0 ml Contrast bolus optimized for the pulmonary arteries. Not diagnostic for the aorta. RENAL FUNCTION: None required. The patient is less than 50 years old. RADIATION DOSE: CT Rad equipment meets quality standard of care and radiation dose reduction techniq ues were employed. CTDIvol: 9.9 - 28.4 mGy. DLP: 986 mGy-cm. . LIMITATIONS: None. FINDINGS: LUNGS AND PLEURA: No pneumothorax. Small areas of subsegmental atelectasis in the periphe ral anterior-lateral left upper lobe. No pleural effusions or pleural calcifications. AORTA AND GREAT VESSELS: No aneurysm. Contrast bolus not optimized for the aorta. HEART: No pericardial effusion. No significant coronary artery calcifications. PULMONARY ARTERIES: No emboli visualized in the main pulmonary arteries or the segmental branches. HILAR AND MEDIASTINAL STRUCTURES: No identified masses or abnormal nodes. HARDWARE: None in the chest. UPPER ABDOMEN: No significant findings. Limited exam. THYROID AND OTHER SOFT TISSUES: No masses. No adenopathy. BONES: No acute or significant finding. 3D MIPS: Confirm above findings. OTHER: No other significant finding. IMPRESSION: No emboli visualized in the main pulmonary arteries or the segmental branches. Small are as of subsegmental atelectasis in the peripheral anterior-lateral left upper lobe. COMMENT: Quality ID # [id number]: Final reports with documentation of one or more dose reduction techniques (e.g., Automated exposure control, adjustment of the mA and/or kV according to patient size, use of iterative reconstruction technique) TECHNICAL DOCUMENTATION: JOB ID: [id number] 2010 [email or web address]- All Rights Reserved Reading location - IP/workstation name: [email or web address]
[2019-12-07] MEDS ORDERED: CEFTRIAXONE 1 GM/D5W RTU 1 GM/50 ML RTUPB IV ONE (19:25)
--- NOTE | 2019-12-07 20:16 | EKG REPORT ---
SEVERITY:- OTHERWISE NORMAL ECG - SINUS RHYTHM BORDERLINE LEFT AXIS DEVIATION : Confirmed by: Ekaterina Kebede MD 07-Dec-2019 20:16:03
[2019-12-07 20:42] VITALS: BP 138/96
== END 2019-12-07 20:42 | disposition home or self-care (01) ==
LOC: ER 14:54
DX: J06.9 Acute upper respiratory infection, unspecified (principal); J98.11 Atelectasis; R07.89 Other chest pain; R06.02 Shortness of breath; F17.210 Nicotine dependence, cigarettes, uncomplicated; I10 Essential (primary) hypertension
CPT/HCPCS: 93005; 94640; 99285; 96365; 36415; 87040; 82553; 82550; 85025; 80053; 84484; 80307; 71045; 71275; 93010; J0696; J7613

== ENCOUNTER 2019-12-24 10:41 | Emergency (ER) | payer SELFPAY ==
[2019-12-24 10:54] VITALS: BP 186/118
[2019-12-24] MEDS ORDERED: HYDROCODONE/ACETAMINOPHEN 5-325 MG TABLET PO ONE (11:16)
--- NOTE | 2019-12-24 11:19 | ER Document Report ---
HPI - HPI Patient complains to provider of: foot and ankle pain Time Seen by Provider: 12/24/19 11:12 Pain Level: 4 Notes: 29-year-old male to the emergency department with complaints of right foot and ankle pain that began this morning. He states he was stepping off his porch and missed 2 steps. He states his ankle rolled underneath him and he felt a pop. He is not able to adequately bear weight on the foot due to pain. He has not taken anything prior to arrival. He denies any other injuries. - ROS Systems Reviewed and Negative: Yes All other systems reviewed and negative - CONSTITUTIONAL Constitutional: DENIES: Fever, Chills - EENT EENT: DENIES: Sore Throat, Ear Pain, Congestion - NEURO Neurology: DENIES: Headache - CARDIOVASCULAR Cardiovascular: DENIES: Chest pain - RESPIRATORY Respiratory: DENIES: Trouble Breathing, Coughing - GASTROINTESTINAL Gastrointestinal: DENIES: Abdominal Pain, Nausea, Patient vomiting, Diarrhea - MUSCULOSKELETAL Musculoskeletal: REPORTS: Extremity pain - See HPI - DERM Skin Color: Normal Skin Problems: None Past Medical History - General Information source: Patient - Social History Smoking Status: Current Every Day Smoker Frequency of alcohol use: Occasional Drug Abuse: None Family History: Reviewed & Not Pertinent - Past Medical History Cardiac Medical History: Reports: Hx Hypertension Renal/ Medical History: Denies: Hx Peritoneal Dialysis Past Surgical History: Reports: Hx Appendectomy Vertical Provider Document - CONSTITUTIONAL Agree With Documented VS: Yes Exam Limitations: No Limitations General Appearance: WD/WN, Mild Distress Notes: Mild pain distress - INFECTION CONTROL TRAVEL OUTSIDE OF THE [place] IN LAST 30 DAYS: No - HEENT HEENT: Atraumatic, Normocephalic, PERRLA - NECK Neck: Normal Inspection, Supple - RESPIRATORY Respiratory: Breath Sounds Normal, No Respiratory Distress. negative: Rales, Rhonchi, Wheezing - CARDIOVASCULAR Cardiovascular: Regular Rate, Regular Rhythm, No Murmur - GI/ABDOMEN Gastrointestinal: Abdomen Soft, Abdomen Non-Tender - MUSCULOSKELETAL/EXTREMETIES Notes: There is tenderness to palpation over the bilateral malleoli of the right ankle. There is also tenderness to palpation on the dorsum of the right foot on the lateral aspect with noted edema. There is evolving ecchymosis. Patient has about 4 out of 5 in strength in dorsiflexion and plantar flexion likely secondary to pain. There is no gross deformity. Cap refill is less than 2 seconds. DP pulses are intact and equal. There is no tenderness to palpation to the right knee, right hip. Right knee has full range of motion with 5 5 strength in flexion extension as well as the right hip - NEURO Level of Consciousness: Awake, Alert, Appropriate - DERM Integumentary: Warm, No Rash Course - Re-evaluation Re-evalutation: 12/24/19 Impression: Ankle sprain and foot sprain. We will Splint the Patient and have him follow up with ortho. Patient agrees with the plan. - Vital Signs Vital signs: Temp Pulse Resp BP Pulse Ox 99.3 F 111 H 20 186/118 H 97 12/24/19 10:53 12/24/19 10:53 12/24/19 10:53 12/24/19 10:53 12/24/19 10:53 - Diagnostic Test Radiology reviewed: Image reviewed, Reports reviewed Procedures - Immobilization Right Ankle Immobilizer type: Ankle stirrup Performed by: PCT Post-Proc Neuro Vasc Exam: Normal, Unchanged from pre-exam Alignment checked and good: Yes Discharge - Discharge Clinical Impression: Fall Qualifiers: Encounter type: initial encounter Qualified Code(s): W19.XXXA - Unspecified fall, initial encounter Right foot sprain Qualifiers: Encounter type: initial encounter Qualified Code(s): S93.601A - Unspecified sprain of right foot, initial encounter Right ankle sprain Qualifiers: Encounter type: initial encounter Involved ligament of ankle: unspecified ligament Qualified Code(s): S93.401A - Sprain of unspecified ligament of right ankle, initial encounter Condition: Stable Disposition: HOME, SELF-CARE Instructions: Sprain ([facility]) Additional Instructions: Take medicines as prescribed. Return if worse. Ice, elevate, use splint. Follow up with orthopedist. Prescriptions: Ibuprofen [Motrin 800 mg Tablet] 800 mg PO Q8H PRN #30 tab PRN Reason: Hydrocodone/Acetaminophen [[place] 5-325 mg Tablet] 1 tab PO Q8H #9 tablet Forms: Return to Work Referrals: LAWANDA SHERIFF JR, DO [ACTIVE PROVISIONAL STAFF] - Follow up in 3-5 days (for ortho follow up)
--- NOTE | 2019-12-24 12:02 | RADIOLOGY REPORT (SQ) ---
EXAM DESCRIPTION: FOOT RIGHT COMPLETE IMAGES COMPLETED DATE/TIME: 12/24/2019 11:51 am REASON FOR STUDY: fall, ankle and foot pain COMPARISON: None. NUMBER OF VIEWS: Three views. TECHNIQUE: AP, lateral and oblique radiographic images acquired of the right foot. LIMITATIONS: None. FINDINGS: MINERALIZATION: Normal. BONES: No acute fracture or dislocation. No worrisome bone lesions. JOINTS: No effusions. SOFT TISSUES: No soft tissue swelling. No foreign body. OTHER: No other significant finding. IMPRESSION: NEGATIVE STUDY OF THE RIGHT FOOT. NO RADIOGRAPHIC EVIDENCE OF ACUTE INJURY. TECHNICAL DOCUMENTATION: JOB ID: [id number] 2010 [employer]- All Rights Reserved Reading location - IP/workstation name: [email or web address]
--- NOTE | 2019-12-24 12:03 | RADIOLOGY REPORT (SQ) ---
EXAM DESCRIPTION: ANKLE RIGHT COMPLETE IMAGES COMPLETED DATE/TIME: 12/24/2019 11:51 am REASON FOR STUDY: fall, ankle and foot pain COMPARISON: None. NUMBER OF VIEWS: Three views. TECHNIQUE: AP, lateral, and oblique radiographic images acquired of the right ankle. LIMITATIONS: None. FINDINGS: MINERALIZATION: Normal. BONES: No acute fracture or dislocation. No worrisome bone lesions. JOINTS: No effusions. SOFT TISSUES: No soft tissue swelling. No foreign body. OTHER: No other significant finding. IMPRESSION: NEGATIVE STUDY OF THE RIGHT ANKLE. NO RADIOGRAPHIC EVIDENCE OF ACUTE INJURY. TECHNICAL DOCUMENTATION: JOB ID: [id number] 2010 [employer]- All Rights Reserved Reading location - IP/workstation name: [email or web address]
== END 2019-12-24 13:22 | disposition home or self-care (01) ==
LOC: ER 10:41
DX: S93.601A Unspecified sprain of right foot, initial encounter (principal); S93.401A Sprain of unspecified ligament of right ankle, initial encounter; X50.0XXA Overexertion from strenuous movement or load, initial encounter; F17.200 Nicotine dependence, unspecified, uncomplicated; I10 Essential (primary) hypertension
CPT/HCPCS: 99284

== ENCOUNTER 2020-02-15 12:42 | Emergency (ER) | payer SELFPAY ==
--- NOTE | 2020-02-15 13:28 | ER Document Report ---
ED Medical Screen (RME) - General Chief Complaint: Chest Pain Stated Complaint: CHEST PAIN Time Seen by Provider: 02/15/20 13:23 Mode of Arrival: Ambulatory Information source: Patient Notes: HPI; 29-year-old male with no previous medical problems presents emergency room complaining of sudden sharp stabbing chest pain that started approximately 1 hour prior to arrival. States he feels like "weight is sitting on my chest". Also complaining of some left upper arm pain. No trauma no injury. States it hurts to breathe. Denies any history of DVTs or PEs. No recent travel. No recent surgeries. No medications for symptoms. PE: Alert and oriented x3. Lungs: Clear to auscultation without rales, rhonchi, wheezes. Heart: Tachycardic without murmurs, rubs, gallops. I have greeted and performed a rapid initial assessment of this patient. A comprehensive ED assessment and evaluation of the patient, analysis of test results and completion of the medical decision making process will be conducted by additional ED providers. I have specifically instructed the patient or family members with the patient to immediately return to any nursing staff should anything change in the patient's condition or with their chief complaint. TRAVEL OUTSIDE OF THE [place] IN LAST 30 DAYS: No - Related Data Allergies/Adverse Reactions: No Known Allergies Allergy (Verified 02/15/20 13:20) Past Medical History - Past Medical History Cardiac Medical History: Reports: Hx Hypertension Renal/ Medical History: Denies: Hx Peritoneal Dialysis Past Surgical History: Reports: Hx Appendectomy Physical Exam - Vital signs Vitals: Temp Pulse Resp BP Pulse Ox 98 F 104 H 28 H 159/97 H 94 02/15/20 12:56 02/15/20 12:56 02/15/20 12:56 02/15/20 12:56 02/15/20 12:56 Course - Vital Signs Vital signs: Temp Pulse Resp BP Pulse Ox 98 F 104 H 28 H 159/97 H 94 02/15/20 12:56 02/15/20 12:56 02/15/20 12:56 02/15/20 12:56 02/15/20 12:56 - Laboratory Result Diagrams: 02/15/20 13:35 02/15/20 13:35 Laboratory results interpreted by me: 02/15/20 13:35 Glucose 155 H Creatine Kinase 40 L
[2020-02-15 14:06] LABS: ABSOLUTE BASOPHILS # (AUTO) 0.1 10^3/uL (0.0-0.2); ABSOLUTE EOSINOPHILS # (AUTO) 0.3 10^3/uL (0.0-0.6); ABSOLUTE LYMPHOCYTES (AUTO) 2.6 10^3/uL (0.5-4.7); ABSOLUTE MONOCYTES (AUTO) 0.6 10^3/uL (0.1-1.4); ABSOLUTE NEUT (AUTO) 5.4 10^3/uL (1.7-8.2); BASOPHILS % (AUTO) 0.7 % (0-2); HEMATOCRIT 48.1 % (37.9-51.0); HEMOGLOBIN 16.2 g/dL (13.5-17.0); LYMPHOCYTES % (AUTO) 29.1 % (13-45); MEAN CORPUSCULAR HEMOGLOBIN 30.5 pg (27.0-33.4); MEAN CORPUSCULAR HGB CONC 33.7 g/dL (32.0-36.0); MEAN CORPUSCULAR VOLUME 91 fl (80-97); MONOCYTES % (AUTO) 6.9 % (3-13); PLATELET COUNT 267 10^3/uL (150-450); RED BLOOD COUNT 5.31 10^6/uL (4.35-5.55); RED CELL DISTRIBUTION WIDTH 13.1 % (11.5-14.0); SEGMENTED NEUTROPHILS % (AUTO) 60.3 % (42-78); TOTAL CELLS COUNTED % (AUTO) 100 %
--- NOTE | 2020-02-15 14:11 | RADIOLOGY REPORT (SQ) ---
EXAM DESCRIPTION: CHEST 2 VIEWS IMAGES COMPLETED DATE/TIME: 02/15/2020 1:52 pm REASON FOR STUDY: chest pain COMPARISON: Chest radiograph 12/07/2019 TECHNIQUE: Frontal and lateral radiographic views of the chest acquired. NUMBER OF VIEWS: Two view. LIMITATIONS: None. FINDINGS: LUNGS AND PLEURA: No opacities, masses or pneumothorax. No pleural effusion. MEDIASTINUM AND HILAR STRUCTURES: No masses or contour abnormalities. HEART AND VASCULAR STRUCTURES: Heart normal size. No evidence for failure. BONES: No acute findings. HARDWARE: None in the chest. OTHER: No other significant finding. IMPRESSION: NO SIGNIFICANT RADIOGRAPHIC FINDING IN THE CHEST. TECHNICAL DOCUMENTATION: JOB ID: [id number] 2010 [email or web address]- All Rights Reserved Reading location - IP/workstation name: [email or web address]
[2020-02-15 14:19] LABS: ALBUMIN 4.1 g/dL (3.5-5.0); ALKALINE PHOSPHATASE 80 U/L (38-126); ANION GAP 7 (5-19); ASPARTATE AMINO TRANSFERASE 34 U/L (17-59); BILIRUBIN,DIRECT 0.1 mg/dL (0.0-0.4); BILIRUBIN,TOTAL 0.3 mg/dL (0.2-1.3); BLOOD UREA NITROGEN 12 mg/dL (7-20); CALCIUM 9.4 mg/dL (8.4-10.2); CARBON DIOXIDE 25 mmol/L (22-30); CHLORIDE 106 mmol/L (98-107); CREATINE KINASE 40 U/L (55-170); GLUCOSE 155 mg/dL (75-110); POTASSIUM 4.4 mmol/L (3.6-5.0)
--- NOTE | 2020-02-15 14:20 | ER Document Report ---
ED Cardiac - General Chief Complaint: Chest Pain Stated Complaint: CHEST PAIN Time Seen by Provider: 02/15/20 13:23 Primary Care Provider: [facility] [Provider Group] - Follow up as needed Mode of Arrival: Ambulatory Information source: Patient TRAVEL OUTSIDE OF THE [place] IN LAST 30 DAYS: No - HPI Positive cardiac history: No Notes: 29-year-old male presents to ED for evaluation of chest pain for the last several hours. Patient reports pain is located in left anterior chest and radiates into the left shoulder and epigastric region. Denies jaw or neck. Notes changes in pain with deep inspiration and ROM. Notes pain is worse with pressure to the chest. Patient denies trauma or injury. Patient states that he has not been doing any heavy lifting. Denies sick contacts or exposures. Denies fevers, chills, nausea, vomiting, low back pain, pain with urination, diarrhea, constipation, or abdominal pain. Denies any cough or productive sputum. Denies any long car trips, calf pain, history of malignancy, or history of DVT/PE. Denies use of illicit substances. Denies other complaints. - Related Data Allergies/Adverse Reactions: No Known Allergies Allergy (Verified 02/15/20 13:20) Past Medical History - Social History Smoking Status: Current Every Day Smoker Family History: Reviewed & Not Pertinent - Past Medical History Cardiac Medical History: Reports: Hx Hypertension Renal/ Medical History: Denies: Hx Peritoneal Dialysis Past Surgical History: Reports: Hx Appendectomy Review of Systems - Review of Systems Notes: REVIEW OF SYSTEMS: CONSTITUTIONAL : Denies fever, chills, or sweats. Denies recent illness. EENT: Denies eye, ear, throat, or mouth pain or symptoms. Denies nasal or sinus congestion. CARDIOVASCULAR: + chest pain. RESPIRATORY: Denies cough, cold, or chest congestion. + shortness of breath, difficulty breathing, denies wheezing. GASTROINTESTINAL: Denies abdominal pain. Denies nausea, vomiting, or diarrhea. Denies constipation. Last BM: GENITOURINARY: Denies difficulty urinating, painful urination, burning, frequency, or blood in urine. FEMALE GENITOURINARY: Denies vaginal bleeding, abnormal or irregular periods. LMP: MUSCULOSKELETAL: Denies neck or back pain or joint pain or swelling. SKIN: Denies rash or skin lesions. HEMATOLOGIC : Denies easy bruising or bleeding. LYMPHATIC: Denies swollen, enlarged glands. NEUROLOGICAL: Denies altered mental status or loss of consciousness. Denies headache. Denies weakness or paralysis or loss of use of either side. Denies problems with gait or speech. Denies sensory or motor loss. PSYCHIATRIC: Denies anxiety or stress or depression. ALL OTHER SYSTEMS REVIEWED AND NEGATIVE. Physical Exam - Vital signs Vitals: Temp Pulse Resp BP Pulse Ox 98 F 104 H 28 H 159/97 H 94 02/15/20 12:56 02/15/20 12:56 02/15/20 12:56 02/15/20 12:56 02/15/20 12:56 General: No acute distress. Alert and oriented x3. Sitting comfortably in a stretcher. Skin: Intact without any jaundice, pallor, or erythema. Warm and dry. HEENT: Normocephalic, atraumatic. Pupils are equal round reactive to light and accommodation. Extraocular movements are intact. TMs without erythema or bulging. Canals are clear. Nares patent without any discharge. Teeth in good condition. Pharynx without erythema, edema, or exudates. No tonsillar enlargement. Uvula is midline. Airway is patent. Neck: Supple with no lymphadenopathy. Full range of motion. Heart: Regular rate and rhythm. S1,S2. No murmurs, rubs, or gallops. Tender to palpation along anterior chest. Lungs: Clear to auscultation bilaterally. No wheezes, rhonchi, rales. Equal chest expansion. No retractions. Abdomen: Soft, nontender to palpation, nondistended. Positive bowel sounds in all 4 quadrants. No hepatosplenomegaly. No masses. No CVA tenderness bilaterally. Neuro: GCS 15. Moving all extremities without discomfort. Extremities: No calf tenderness or edema. No cyanosis or clubbing. Radial and pedal pulses 2+ bilaterally. Brisk capillary refill. Psych: Mood and affect appropriate. Course - Re-evaluation Re-evalutation: 02/15/20 15:24 29-year-old male presents to ED for evaluation of chest pain starting earlier today. Patient denies radiation of pain into the arms, neck or jaw. Patient was evaluated with CBC, CMP, Troponin, D- dimer. EKG found to be unremarkable for ST segment elevations or depressions. CBC and CMP unremarkable for signs of infection or electrolyte abnormalities. Troponin x2 negative and D-dimer unremarkable. Chest x-ray was negative for acute cardiopulmonary pathology i ncluding pneumonia, effusions, or congestion. HEART score is 0. Patient advised of the findings. Patient is most likely experiencing pleurisy verses ACS. Patient treated symptomatically with tordol, ventolin, and prednisone. I did discuss with patient that I was going to [place] swab having given his sudden onset of symptoms. Patient was agreeable with this and is aware he will have results in 3 to 5 days. He will remain on isolation until he has the results. He understands he is under investigation by the department of health until this occurs. He will be written out of work as well. He is also given incentive spirometer to promote deep breathing. He is provided teaching in the emergency department. Instructed to follow up with primary care physician. Patient understands indications to return to the ER. Patient is agreeable with this plan. 02/15/20 19:57 - Vital Signs Vital signs: Temp Pulse Resp BP Pulse Ox 98 F 104 H 25 H 128/84 H 100 02/15/20 12:56 02/15/20 12:56 02/15/20 19:00 02/15/20 19:00 02/15/20 15:05 - Laboratory Result Diagrams: 02/15/20 13:35 02/15/20 13:35 Laboratory results interpreted by me: 02/15/20 13:35 Glucose 155 H Creatine Kinase 40 L - Diagnostic Test Radiology reviewed: Image reviewed Radiology results interpreted by me: 02/15/20 20:00 CXR unremarkable as reviewed by myself. - EKG Interpretation by [place] EKG shows normal: Sinus rhythm Rate: Normal Rhythm: NSR Discharge - Discharge Clinical Impression: Person under investigation for COVID-19 Chest pain Qualifiers: Chest pain type: chest pain on breathing Qualified Code(s): R07.1 - Chest pain on breathing Condition: Stable Disposition: HOME, SELF-CARE Instructions: COVID-19 Guidance for Persons Under Investigation, Chest Wall Pain ([facility]) Prescriptions: Prednisone [Deltasone 20 mg Tablet] 2 tab PO DAILY 5 Days #10 tablet Albuterol Sulfate [Proair HFA Inhalation Aerosol 8.5 gm MDI] 2 puff IH Q4H PRN #1 mdi PRN Reason: Ketorolac Tromethamine [Toradol 10 mg Tablet] 10 mg PO Q8H PRN #15 tablet PRN Reason: Forms: Return to Work Referrals: [facility] [Provider Group] - Follow up as needed
[2020-02-15] MEDS ORDERED: KETOROLAC TROMETHAMINE INJ/PF 30 MG/1 ML SDV IV ONE (14:22)
[2020-02-15 14:30] LABS: CREATINE KINASE MB 0.26 ng/mL (<4.55)
[2020-02-15 14:32] LABS: TROPONIN I < 0.012 ng/mL
[2020-02-15] MEDS ORDERED: ACETAMINOPHEN 325 MG TABLET PO ONE (18:50)
[2020-02-15 19:14] VITALS: BP 128/84
--- NOTE | 2020-02-16 08:08 | EKG REPORT ---
SEVERITY:- OTHERWISE NORMAL ECG - SINUS TACHYCARDIA : Confirmed by: Ursula Watt 16-Feb-2020 08:07:11
== END 2020-02-15 19:20 | disposition home or self-care (01) ==
LOC: ER 12:42
DX: R07.9 Chest pain, unspecified (principal); R07.1 Chest pain on breathing; F17.200 Nicotine dependence, unspecified, uncomplicated; I10 Essential (primary) hypertension; Z20.828 Contact with and (suspected) exposure to other viral communicable diseases
CPT/HCPCS: 93005; 99285; 96374; 36415; 82553; 82550; 85025; 80053; 84484; 85379; 71046; 93010; J1885

== ENCOUNTER 2020-03-31 18:46 | Emergency (ER) | payer SELFPAY ==
--- NOTE | 2020-03-31 19:56 | ER Document Report ---
ED Medical Screen (RME) - General Chief Complaint: Eye Problem Stated Complaint: RIGHT EYE PAIN, VISION PROBLEM Time Seen by Provider: 03/31/20 19:53 Notes: Patient is a 29-year-old male with history of hypertension (NOT CURRENTLY ON MEDICATION) who presents to the emergency department with a chief complaint of loss of vision. Patient reports around 2 PM this afternoon he noticed that he was having discomfort in his eye. He states gradually since then he has lost peripheral vision located on the right. He reports the right eye pain has gotten more severe. He states that there was no trauma to the eye. Patient was prescribed corrective lenses years ago but does not wear them. Patient reports pain with eye movement. TRAVEL OUTSIDE OF THE [place] IN LAST 30 DAYS: No - Related Data Allergies/Adverse Reactions: No Known Allergies Allergy (Verified 02/15/20 13:20) Past Medical History - Social History Chew tobacco use (# tins/day): No Drug Abuse: None - Past Medical History Cardiac Medical History: Reports: Hx Hypertension Renal/ Medical History: Denies: Hx Peritoneal Dialysis Past Surgical History: Reports: Hx Appendectomy Physical Exam - Vital signs Vitals: Temp Pulse Resp BP Pulse Ox 98.5 F 97 16 166/111 H 98 03/31/20 18:49 03/31/20 18:49 03/31/20 18:49 03/31/20 18:49 03/31/20 18:49 - HEENT Head: Normocephalic Eyes: Normal Pupils: PERRL Notes: Patient having difficulty opening the right eye due to right eye pain. I was able to get a quick visual on the right eye. There is no redness, drainage. Patient does have pain with extraocular movements. Course - Re-evaluation Re-evalutation: 03/31/20 19:55 Patient was upgraded to an KINGSLEY level 2. Patient will require a thorough eye exam. Patient was also noted to be hypertensive with a blood pressure of 166/111. Patient denies headache. I have greeted and performed a rapid initial assessment of this patient. A comprehensive ED assessment and evaluation of the patient, analysis of test results and completion of the medical decision making process will be conducted by additional ED providers. - Vital Signs Vital signs: Temp Pulse Resp BP Pulse Ox 98.5 F 97 16 166/111 H 98 03/31/20 18:49 03/31/20 18:49 03/31/20 18:49 03/31/20 18:49 03/31/20 18:49
[2020-03-31] MEDS ORDERED: TETRACAINE HCL 0.5% OPH SOLN 4 ML OD ONE (22:24)
--- NOTE | 2020-03-31 22:44 | ER Document Report ---
ED General - General Chief Complaint: Eye Problem Stated Complaint: RIGHT EYE PAIN, VISION PROBLEM Time Seen by Provider: 03/31/20 19:53 TRAVEL OUTSIDE OF THE [place] IN LAST 30 DAYS: No - HPI Notes: Patient is a 29-year-old male who presents to the emergency department for evaluation. He states he had sudden onset right eye pain. This started around noon today. He has been getting blurred vision since then, and states now he feels like he is losing his peripheral vision. He denies any injury to the area. He said no recent URI symptoms. No fevers or chills. No trauma to the eye. No nausea or vomiting. He states the pain in his eye is worsened by moving it, nothing seems to make it better. - Related Data Allergies/Adverse Reactions: No Known Allergies Allergy (Verified 02/15/20 13:20) Past Medical History - General Information source: Patient - Social History Smoking Status: Never Smoker Chew tobacco use (# tins/day): No Drug Abuse: None Family History: Reviewed & Not Pertinent - Past Medical History Cardiac Medical History: Reports: Hx Hypertension - Never treated Renal/ Medical History: Denies: Hx Peritoneal Dialysis Past Surgical History: Reports: Hx Appendectomy Review of Systems - Review of Systems Constitutional: No symptoms reported EENT: See HPI Cardiovascular: No symptoms reported Respiratory: No symptoms reported Gastrointestinal: No symptoms reported Genitourinary: No symptoms reported - your eyeballs are all out of your your Musculoskeletal: No symptoms reported Skin: No symptoms reported Neurological/Psychological: No symptoms reported Physical Exam - Vital signs Vitals: Temp Pulse Resp BP Pulse Ox 98.5 F 97 16 166/111 H 98 03/31/20 18:49 03/31/20 18:49 03/31/20 18:49 03/31/20 18:49 03/31/20 18:49 - Notes Notes: Is a pleasant 29-year-old male who appears stated age, in no acute distress. Vital signs reviewed, please refer to chart. Head is normocephalic, atraumatic. Pupils equal round, reactive to light. Neck is supple without meningismus. Heart is regular rate and rhythm. Lungs are clear to auscultation bilaterally. Abdomen is soft, nontender, normoactive bowel sounds throughout. Extremities without cyanosis, clubbing. Posterior calves are nontender. Peripheral pulses are equal. Skin is warm and dry. Patient is awake, alert, oriented x3. Cranial nerves III - XII are grossly intact without focal neurological deficits. Strength is plus 5 out of 5 bilateral upper and lower extremities. Sensation is intact. Reflexes symmetrical. Intact [id number] on the left, rapid alternating movements, [id number]. - HEENT Eyes: Normal. No: Pale conjunctiva, Periorbital ecchymosis, Periorbital edema, Scleral icterus, Tears Conjunctiva: Normal Extraocular movements intact: Yes Eyelashes: Normal Pupils: PERRL Visual acuity- Right eye: 20/200 Visual acuity- Left eye: 20/15 Visual acuity- Both eyes: 20/30 Corrective lenses worn: No Course - Re-evaluation Re-evalutation: 04/01/20 00:08 Patient presents the emergency department for evaluation of blurred vision, peripheral vision loss. Initially the patient had absolutely no corneal/conjunctival injection. He did develop some mild conjunctival injection laterally during the course of his stay. This physician had visual acuity for which was showed 20/200 vision in the right. Zackary-Pen showed pressures of 19 and 20. His pupils remain round and reactive. Ultrasound performed at the bedside failed to show any significant signs of retinal detachment. At this point I did consult Dr. Blaze Diaz, on-call for ophthalmology. We talked at length about findings. Patient has no other neurological deficits, untreated hypertension but no other risk factors. His fingerstick glucose is in the 90s. I do not have a clear etiology of his symptoms, but it was discussed with the on-call gearman, and he does not see any need for any acute interventions at this time, just very close follow-up. This was explained to the patient. The importance of calling for thing in the morning to make an appointment to be seen immediately was stressed to the patient, and he voiced understanding. - Vital Signs Vital signs: Temp Pulse Resp BP Pulse Ox 98.5 F 97 16 166/111 H 98 03/31/20 18:49 03/31/20 18:49 03/31/20 18:49 03/31/20 18:49 03/31/20 18:49 - Laboratory Results Critical Laboratory Results Reviewed: No Critical Results - Radiology Results Critical Radiology Results Reviewed: No Critical Results Discharge - Discharge Clinical Impression: Acute right eye pain, Vision loss, right eye Condition: Stable Disposition: HOME, SELF-CARE Additional Instructions: No clear cause was identified today for the visual symptoms and eye pain you are experiencing. It is very important that you follow-up closely with eye doctor tomorrow. Call his office in the morning to make an appointment to be seen. Return to the emergency department if you develop worsening or new concerning symptoms of any sort. Referrals: BLAZE DIAZ, DO [ACTIVE STAFF] - Follow up as needed
[2020-04-01 01:18] VITALS: BP 162/113
== END 2020-04-01 01:18 | disposition home or self-care (01) ==
LOC: ER 18:46
DX: H57.11 Ocular pain, right eye (principal); H54.61 Unqualified visual loss, right eye, normal vision left eye; H53.8 Other visual disturbances; I10 Essential (primary) hypertension
CPT/HCPCS: 99282; 82962; J3490

== ENCOUNTER 2020-04-01 12:42 | Emergency (ER) | payer SELFPAY ==
--- NOTE | 2020-04-01 13:32 | ER Document Report ---
ED Medical Screen (RME) - General TRAVEL OUTSIDE OF THE [place] IN LAST 30 DAYS: No <FINESSE JAIMES - Last Filed: 04/01/20 13:36> <DIDIERBRUCE P - Last Filed: 04/01/20 16:16> - General Chief Complaint: High Blood Pressure Stated Complaint: HIGH BLOOD PRESSURE - HPI Notes: 04/01/20 13:30 Rapid Medical Exam HPI: Patient is a 29-year-old male who presents with right lateral peripheral vision loss and eye pain since last night. He was seen in the ED last night and was discharged home to follow-up with ophthalmology. Ophthalmology saw him today in the eye dilation and overall reassuring exam but sent him back to the ER just now because of elevated blood pressures. Patient has no other neurologic deficits. No history of hypertension. His blood pressures are noted for diastolic greater than 100. Patient says the ER did check his eye pressures last night and they were fine. He said he also had a ultrasound of the eye last night which was reassuring. Pt says eye doctor this morning did say his vision was normal in his left eye, to all [place]ira Physical Exam: GENERAL: Well-appearing, well-nourished and in no acute distress. HEAD: Atraumatic, normocephalic. ENT: eyes, right- loss of periph vision to right eye. Moist mucous membranes. RESP: Respirations even and unlabored CV- Regular rate. NEURO: No focal neurological deficits. Moves all extremities spontaneously and on command. My involvement in this patients care was limited to a rapid initial assessment. A comprehensive ED assessment and evaluation of the patient, analysis of test results, treatment, and completion of the medical decision making process will be performed by other ER providers. 04/01/20 13:36 (FINESSE JAIMES) - Related Data Allergies/Adverse Reactions: No Known Allergies Allergy (Verified 04/01/20 13:27) Past Medical History - Past Medical History Cardiac Medical History: Reports: Hx Hypertension - Never treated Renal/ Medical History: Denies: Hx Peritoneal Dialysis Past Surgical History: Reports: Hx Appendectomy <FINESSE JAIMES - Last Filed: 04/01/20 13:36> Physical Exam - Vital signs Vitals: Temp Pulse Resp BP Pulse Ox 98.8 F 90 17 172/101 H 98 04/01/20 12:55 04/01/20 12:55 04/01/20 12:55 04/01/20 12:55 04/01/20 12:55 Course - Laboratory Results Critical Laboratory Results Reviewed: No Critical Results <FINESSE JAIMES - Last Filed: 04/01/20 13:36> - Laboratory Results Result Diagrams: 04/01/20 14:20 04/01/20 14:20 <BRUCE VELÁSQUEZ - Last Filed: 04/01/20 16:16> - Re-evaluation Re-evalutation: 04/01/20 16:13 MDM 29 year old with htn. Looking thru old records he has htn and DBP always seemingly >110. Discussed follow up and he expressed understanding. Opthamology has already visited with the pt and there is no acute opthamology issue. We discussed lifestyle modification and pt also expressed understanding regarding this. (BRUCE VELÁSQUEZ) - Vital Signs Vital signs: Temp Pulse Resp BP Pulse Ox 98.8 F 90 17 168/111 H 98 04/01/20 12:55 04/01/20 12:55 04/01/20 12:55 04/01/20 15:47 04/01/20 12:55 - Laboratory Results Laboratory Results Interpreted: 04/01/20 14:20 ALT 63 H Doctor's Discharge <FINESSE JAIMES - Last Filed: 04/01/20 13:36> <BRUCE VELÁSQUEZ - Last Filed: 04/01/20 16:16> - Discharge Clinical Impression: Tobacco abuse Hypertension Qualifiers: Hypertension type: unspecified Qualified Code(s): I10 - Essential (primary) hypertension Condition: Stable Instructions: Angiotensin Converting Enzyme Inhibitor Medication ([facility]), High Blood Pressure ([facility]), High Blood Pressure, Requiring Treatment ([facility]), Hydrochlorothiazide ([facility]), Family Physicians / Practices Additional Instructions: Stop smoking. Exercise in moderation. Take the medicine as directed. Please return here for chest pain or shortness of breath or other problems or concerns. Call a primary doctor for follow up in the next 2-3 weeks. Prescriptions: Hydrochlorothiazide 12.5 mg PO DAILY #30 tablet Lisinopril [Prinivil] 5 mg PO DAILY #30 tablet Forms: Elevated Blood Pressure, Smoking Cessation Education
--- NOTE | 2020-04-01 13:51 | RADIOLOGY REPORT (SQ) ---
EXAM DESCRIPTION: CHEST SINGLE VIEW IMAGES COMPLETED DATE/TIME: 04/01/2020 1:43 pm REASON FOR STUDY: htn emergnecy, vision loss COMPARISON: 02/17/2020 EXAM PARAMETERS: NUMBER OF VIEWS: One view. TECHNIQUE: Single frontal radiographic view of the chest acquired. RADIATION DOSE: NA LIMITATIONS: None. FINDINGS: LUNGS AND PLEURA: No opacities, masses or pneumothorax. No pleural effusion. MEDIASTINUM AND HILAR STRUCTURES: No masses. Contour normal. HEART AND VASCULAR STRUCTURES: Heart normal in size. Normal vasculature. BONES: No acute findings. HARDWARE: None in the chest. OTHER: No other significant finding. IMPRESSION: NO ACUTE RADIOGRAPHIC FINDING IN THE CHEST. TECHNICAL DOCUMENTATION: JOB ID: [id number] 2010 [employer]- All Rights Reserved Reading location - IP/workstation name: [email or web address]
--- NOTE | 2020-04-01 13:54 | RADIOLOGY REPORT (SQ) ---
EXAM DESCRIPTION: CT HEAD WITHOUT IMAGES COMPLETED DATE/TIME: 04/01/2020 1:43 pm REASON FOR STUDY: HTN, vision loss COMPARISON: None. TECHNIQUE: Axial images acquired through the brain without intravenous contrast. Images reviewed wi th bone, brain and subdural windows. Additional sagittal and coronal reconstructions were generated. Images stored on PACS. All CT scanners at this facility use dose modulation, iterative reconstruction, and/or weight based d osing when appropriate to reduce radiation dose to as low as reasonably achievable (ALARA). [facility]: Dose Right [facility]: CareDose [facility]: Dose Right [facility]: Teradose 4D [facility]: Smart KeyEffx RADIATION DOSE: CT Rad equipment meets quality standard of care and radiation dose reduction techniq ues were employed. CTDIvol: 53.2 mGy. DLP: 1070 mGy-cm. mGy. LIMITATIONS: None. FINDINGS: VENTRICLES: Normal size and contour. CEREBRUM: No masses. No hemorrhage. No midline shift. No evidence for acute infarction. Normal gra y/white matter differentiation. No areas of low density in the white matter. CEREBELLUM: No masses. No hemorrhage. No alteration of density. No evidence for acute infarction. EXTRAAXIAL SPACES: No fluid collections. No masses. ORBITS AND GLOBE: No intra- or extraconal masses. Normal contour of globe without masses. CALVARIUM: No fracture. PARANASAL SINUSES: Incidental note is made of a diminutive, mildly hyperostotic right maxillary sinus , suggesting chronic sinus disease. No mucosal thickening or fluid levels to suggest acute paranasal sinusitis. Mastoids are clear and evenly aerated. SOFT TISSUES: No mass or hematoma. OTHER: No other significant finding. IMPRESSION: NORMAL BRAIN CT WITHOUT CONTRAST. CHRONIC AND INCIDENTAL FINDINGS DETAILED ABOVE. EVIDENCE OF ACUTE STROKE: NO. COMMENT: Quality ID # [id number]: Final reports with documentation of one or more dose reduction techniques (e.g., Automated exposure control, adjustment of the mA and/or kV according to patient size, use of iterative reconstruction technique) TECHNICAL DOCUMENTATION: JOB ID: [id number] 2010 [employer]- All Rights Reserved Reading location - IP/workstation name: [email or web address]
[2020-04-01 14:51] LABS: ABSOLUTE BASOPHILS # (AUTO) 0.1 10^3/uL (0.0-0.2); ABSOLUTE EOSINOPHILS # (AUTO) 0.3 10^3/uL (0.0-0.6); ABSOLUTE LYMPHOCYTES (AUTO) 3.1 10^3/uL (0.5-4.7); ABSOLUTE MONOCYTES (AUTO) 0.5 10^3/uL (0.1-1.4); ABSOLUTE NEUT (AUTO) 4.6 10^3/uL (1.7-8.2); BASOPHILS % (AUTO) 0.7 % (0-2); EOSINOPHILS % (AUTO) 3.1 % (0-6); HEMATOCRIT 45.9 % (37.9-51.0); HEMOGLOBIN 15.9 g/dL (13.5-17.0); MEAN CORPUSCULAR HEMOGLOBIN 30.2 pg (27.0-33.4); MEAN CORPUSCULAR HGB CONC 34.6 g/dL (32.0-36.0); MEAN CORPUSCULAR VOLUME 87 fl (80-97); MONOCYTES % (AUTO) 5.9 % (3-13); PLATELET COUNT 216 10^3/uL (150-450); RED BLOOD COUNT 5.26 10^6/uL (4.35-5.55); RED CELL DISTRIBUTION WIDTH 12.7 % (11.5-14.0); SEGMENTED NEUTROPHILS % (AUTO) 54.3 % (42-78); TOTAL CELLS COUNTED % (AUTO) 100 %; WHITE BLOOD COUNT 8.6 10^3/uL (4.0-10.5)
[2020-04-01 15:08] LABS: ALBUMIN 4.1 g/dL (3.5-5.0); ALKALINE PHOSPHATASE 93 U/L (38-126); ANION GAP 5 (5-19); ASPARTATE AMINO TRANSFERASE 38 U/L (17-59); BILIRUBIN,DIRECT 0.2 mg/dL (0.0-0.4); BILIRUBIN,TOTAL 0.5 mg/dL (0.2-1.3); BLOOD UREA NITROGEN 10 mg/dL (7-20); CALCIUM 9.4 mg/dL (8.4-10.2); CARBON DIOXIDE 27 mmol/L (22-30); CHLORIDE 106 mmol/L (98-107); GLUCOSE 90 mg/dL (75-110); POTASSIUM 4.6 mmol/L (3.6-5.0)
[2020-04-01] MEDS ORDERED: LISINOPRIL 5 MG TABLET PO ONE (16:09)
[2020-04-01] MEDS ORDERED: HYDROCHLOROTHIAZIDE 12.5 MG TABLET PO ONE (16:09)
[2020-04-01 16:12] VITALS: BP 157/109
--- NOTE | 2020-04-01 16:50 | ER Document Report ---
Entered by ASHER PRADO SCRIBE 04/01/20 1545 Acting as scribe for:BRUCE VELÁSQUEZ DO ED General - General Chief Complaint: High Blood Pressure Stated Complaint: HIGH BLOOD PRESSURE Time Seen by Provider: 04/01/20 15:13 Information source: Patient Notes: This 29 year old male patient presents to the emergency department today with an elevated blood pressure. 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 Patient states no acute problems were found and was sent by his Jig Inspector to the ED today for his elevated blood pressure. Patient does not report any symptoms. Patient reports family history of HTN and is not on any medications for blood pressure. TRAVEL OUTSIDE OF THE [place] IN LAST 30 DAYS: No - Related Data Allergies/Adverse Reactions: No Known Allergies Allergy (Verified 04/01/20 13:27) Past Medical History - General Information source: Patient, [facility] Records - Social History Smoking Status: Current Every Day Smoker Cigarette use (# per day): Yes Family History: Hypertension Patient has homicidal ideation: No - Past Medical History Cardiac Medical History: Reports: Hx Hypertension - Never treated Renal/ Medical History: Denies: Hx Peritoneal Dialysis Past Surgical History: Reports: Hx Appendectomy Review of Systems - Review of Systems Constitutional: No symptoms reported EENT: See HPI Cardiovascular: See HPI, Other - Elevated blood pressure Respiratory: No symptoms reported Gastrointestinal: No symptoms reported Genitourinary: No symptoms reported Male Genitourinary: No symptoms reported Musculoskeletal: No symptoms reported Skin: No symptoms reported Hematologic/Lymphatic: No symptoms reported Neurological/Psychological: No symptoms reported -: Yes All other systems reviewed and negative Physical Exam - Vital signs Vitals: Temp Pulse Resp BP Pulse Ox 98.8 F 90 17 172/101 H 98 04/01/20 12:55 04/01/20 12:55 04/01/20 12:55 04/01/20 12:55 04/01/20 12:55 - General General appearance: Appears well, Alert - HEENT Head: Normocephalic, Atraumatic Eyes: Normal Pupils: PERRL Visual acuity- Right eye: 20/50 Visual acuity- Left eye: 20/30 Visual acuity- Both eyes: 20/20 Corrective lenses worn: No - Respiratory Respiratory status: No respiratory distress Chest status: Nontender Breath sounds: Normal Chest palpation: Normal - Cardiovascular Rhythm: Regular Heart sounds: Normal auscultation Murmur: No - Abdominal Inspection: Obese Distension: No distension Bowel sounds: Normal Tenderness: Nontender - Extremities General upper extremity: Normal inspection, Normal ROM General lower extremity: Normal inspection, Normal ROM. No: Edema - Neurological Neuro grossly intact: Yes Cognition: Normal Orientation: AAOx4 [place] Coma Scale Eye Opening: Spontaneous [place] Coma Scale Verbal: Oriented Sig[place]o Coma Scale Motor: Obeys Commands Sigifredo Coma Scale Total: 15 Speech: Normal Sensory: Normal - Psychological Associated symptoms: Normal affect, Normal mood - Skin Skin Temperature: Warm Skin Moisture: Dry Skin Color: Normal Course - Vital Signs Vital signs: Temp Pulse Resp BP Pulse Ox 98.5 F 87 18 157/109 H 98 04/01/20 16:00 04/01/20 16:00 04/01/20 16:00 04/01/20 16:01 04/01/20 16:00 - Laboratory Results Result Diagrams: 04/01/20 14:20 04/01/20 14:20 Laboratory Results Interpreted: 04/01/20 14:20 ALT 63 H Critical Laboratory Results Reviewed: No Critical Results - Radiology Results Critical Radiology Results Reviewed: No Critical Results Discharge - Discharge Clinical Impression: Tobacco abuse Hypertension Qualifiers: Hypertension type: unspecified Qualified Code(s): I10 - Essential (primary) hypertension Condition: Stable Disposition: HOME, SELF-CARE Instructions: Angiotensin Converting Enzyme Inhibitor Medication ([facility]), Family Physicians / Practices, High Blood Pressure ([facility]), High Blood Pressure, Requiring Treatment ([facility]), Hydrochlorothiazide ([facility]) Additional Instructions: Stop smoking. Exercise in moderation. Take the medicine as directed. Please return here for chest pain or shortness of breath or other problems or concerns. Call a primary doctor for follow up in the next 2-3 weeks. Prescriptions: Hydrochlorothiazide 12.5 mg PO DAILY #30 tablet Lisinopril [Prinivil] 5 mg PO DAILY #30 tablet Forms: Elevated Blood Pressure, Smoking Cessation Education I personally performed the services described in the documentation, reviewed and edited the documentation which was dictated to the scribe in my presence, and it accurately records my words and actions.
--- NOTE | 2020-04-01 19:56 | EKG REPORT ---
SEVERITY:- BORDERLINE ECG - SINUS RHYTHM NONSPECIFIC INTRAVENTRICULAR CONDUCTION DELAY : Confirmed by: Aditya Membreno MD 01-Apr-2020 19:55:28
== END 2020-04-01 16:31 | disposition home or self-care (01) ==
LOC: ER 12:42
DX: I10 Essential (primary) hypertension (principal); H57.11 Ocular pain, right eye; H54.7 Unspecified visual loss; F17.210 Nicotine dependence, cigarettes, uncomplicated
CPT/HCPCS: 36415; 70450; 71045; 80053; 84484; 85025; 93005; 93010; 99285